=== PATIENT | male | born 1960 | race Caucasian/White ===

== ENCOUNTER → 2017-04-05 | Day surgery (SDC) | payer BC ==
[~2017-04-05] MED LIST: HYDROmorphone 2 MG/ML VIAL IV PRN; IV RINGERS,LACTATED 1000ML 1,000 ML IV SCH; LIDOCAINE 1% PF 2 ML VIAL. ID PRN; LIDOCAINE 2% PF Vial for OR 5 ML VIAL. ONE; MORPHINE SULFATE 2 MG/ML DISP.SYRIN. IV PRN; ONDANSETRON PF 4 MG/2 ML VIAL. IV PRN; PROCHLORPERAZINE 10 MG/2 ML VIAL. IV PRN; PROPOFOL 40 ML IV ONE; fentaNYL PF VIAL 100 MCG/2 ML VIAL IV PRN
[2017-04-05 09:52] VITALS: BP 123/80
--- NOTE | 2017-04-05 10:20 | CONS ---
DATE OF CONSULTATION: 04/05/2017 REASON FOR CONSULTATION: Rectal polyp with high-grade dysplasia. REFERRING PHYSICIAN: VIOLA Adair HISTORY OF PRESENT ILLNESS: A 56-year-old male whose past medical history is significant for colon polyps, hemorrhoids, post-appendectomy, eye surgery and tonsillectomy. He is seen in the first surveillance colonoscopy here, previously had undergone colonoscopy, which revealed hyperplastic polyps with tubular adenoma, which showed high grade dysplasia clean base. Surveillance exam was recommended in 1 year's time to reassess. Denies any bleeding, change in bowel habits, pain or additional constitutional symptoms at this time. PAST MEDICAL HISTORY: Colon polyps, high grade dysplasia, hemorrhoids. ALLERGIES: None. MEDICATIONS: None. FAMILY AND SOCIAL HISTORY: CVA with her father. He is a nonsmoker and social drinker. PAST SURGICAL HISTORY: Appendectomy, eye surgery, tonsillectomy. REVIEW OF SYSTEMS: Per records. PHYSICAL EXAMINATION: GENERAL: Reveals a well-nourished, well-developed male. VITAL SIGNS: Temperature is 98.5, pulse 60, respirations 20. HEENT: Normocephalic and atraumatic head. Pupils and extraocular muscles not tested. Sclerae anicteric. NECK: Supple. LUNGS: Clear. CARDIOVASCULAR: Reveals an S1, S2 without S3, S4 or appreciable murmur. ABDOMEN: Reveals a soft abdomen, normal bowel sounds, without appreciable hepatosplenomegaly. EXTREMITIES: Reveal no cyanosis, clubbing or edema. IMPRESSION: History of colonic polyps with high grade dysplasia. Surveillance exam is recommended at this time. Risks and benefits have been discussed. The patient is willing to proceed. JASMINE ORELLANA MD DR: KAEL/florina JOB#: [id number] / [id number]
--- NOTE | 2017-04-06 13:08 | PATHOLOGY ---
PATHOLOGY REPORT * * * * * * * * FINAL DIAGNOSIS: Rectal biopsies: - Tubular adenomas (3). - Hyperplastic polyps, multiple. COMMENT: Sections of the rectal biopsies reveal three segments of tubular adenoma showing no high grade dysplasia or evidence of malignancy. Most of the remaining segments are hyperplastic polyps or segments of benign rectal mucosa. (JPM:mml; 04/06/2017) REPORT ELECTRONICALLY SIGNED BY: Mingo Yarbrough M.D. DATE/TIME: 04/06/2017 13:07 * * * * * * * * GROSS PATHOLOGY: Received in formalin labeled "Jose Kiran, rectal biopsies," are multiple (more than 10) segments of ramon soft tissue measuring 2.5 x 0.5 x 0.3 cm in aggregate dimensions and ranging from 0.1 to 0.3 cm in maximum dimension. The specimen is submitted entirely in cassette A1. (TSD; 04/05/2017) INITIAL CPT CODE(S): A; 49447 Professional services performed [place] [facility] [address] Technical services performed by [facility] at [address] [place] [address]. SPECIMEN(S) RECEIVED: A.Rectal biopsies CLINICAL HISTORY: History of polyps PATIENT: JOSE KIRAN /AGE: 612/08/1960 (Age: 56) PATIENT #: [id number] ALT CASE #: SPECIMEN COLLECTION DATE: 04/05/2017 SPECIMEN RECEIVED DATE: 04/05/2017 [facility] - [address] [place] [address] - PHONE: [phone] * * * END OF REPORT * * *
== END | disposition home or self-care (01) ==
LOC: ENDOS 07:21
PROVIDERS: ATTEND Internal Medicine Gastroenterology
DX: Z09 Encounter for follow-up examination after completed treatment for conditions other than malignant neoplasm (principal); Z86.010 Personal history of colon polyps; K62.1 Rectal polyp; K64.0 First degree hemorrhoids; M19.91 Primary osteoarthritis, unspecified site; F17.200 Nicotine dependence, unspecified, uncomplicated; Z72.0 Tobacco use; Z86.69 Personal history of other diseases of the nervous system and sense organs; Z98.890 Other specified postprocedural states; Z87.39 Personal history of other diseases of the musculoskeletal system and connective tissue
CPT/HCPCS: 45380; 88305; J2704; J2001